=== PATIENT | female | born 1995 | race Caucasian/White ===

== ENCOUNTER 2020-02-20 12:39 | Outpatient (CLI) | payer OTHER ==
[~2020-02-20 12:39] MED LIST: Iopamidol 300 61% 50 ML VIAL FS ONE
[2020-02-20 13:01] LABS: BHCG - Serum Negative (NEGATIVE); Pregs Control Background? CLEAR/WHITE (CLR/WHITE); Pregs Control Bar Appear? YES (CONTROL BAR)
--- NOTE | 2020-02-20 13:45 | ULT ---
Pelvic sonogram transabdominal and transvaginal imaging with duplex evaluation HISTORY: Pelvic pain. Polycystic ovarian disease. FINDINGS: Urinary bladder is unremarkable. Uterus has a homogeneous echotexture and is 7.5 cm. Endome trium is 0.5 cm. No free fluid. The right ovary is 3.5 cm length and the left is 3.1 cm. Each contains follicles and demonstrates goo d color and spectral Doppler flow. IMPRESSION : Normal exam.
--- NOTE | 2020-02-20 15:12 | RAD ---
Hysterosalpingogram HISTORY: Polycystic ovaries. Pelvic pain. Infertility. FINDINGS: After explaining the procedure and answering all questions, the uterine cervix was carefull y exposed and prepped. HSG catheter placed and balloon inserted without difficulty. Approximately 8 cc Isovue contrast was carefully instilled into the endometrial cavity. There is gent le downward concave contour of the fundal myometrium at the. Projecting superiorly from the left uterine horn is a broad-based sharp left superiorly directed focus of contrast with a thin underlying line of contrast absence. Each fallopian tube widely patent with free spill from each ovary. Balloon was deflated and access contrast aspirated. Patient tolerated well and was dismissed in good condition. IMPRESSION : Patent fallopian tubes. Arcuate configuration of the uterus. Small synechia at the superior margin of the left horn.
== END 2020-02-20 12:40 | disposition home or self-care (01) ==
LOC: ULT 12:39
PROVIDERS: ATTEND Obstetrics & Gynecology
DX: Z31.41 Encounter for fertility testing (principal); R10.2 Pelvic and perineal pain; E28.2 Polycystic ovarian syndrome
CPT/HCPCS: 58340; 74740; 76856; 84703; Q9967

== ENCOUNTER 2022-04-04 15:46 | Outpatient (CLI) | payer OTHER | END 2022-04-04 15:47 | disposition home or self-care (01) | LOC: BICULT 15:46 | PROVIDERS: ATTEND Obstetrics & Gynecology | DX: N63.13 Unspecified lump in the right breast, lower outer quadrant (principal) ==